=== PATIENT | male | born 1950 | race Caucasian/White ===

== ENCOUNTER 2018-01-04 01:44 | Emergency (ER) | payer OTHER ==
--- NOTE | 2018-01-04 01:50 | EDPHY ---
H & P Time Seen by Provider: 01/04/18 01:50 HPI/ROS: HPI CHIEF COMPLAINT: Shortness of breath HISTORY OF PRESENT ILLNESS: 67-year-old male, history of HIV, undetectable viral load and CD4 count per the patient over 900, presents emergency room with shortness of breath. Patient reports that he lives half the year in [place] and half the year in [place] and often travels back and forth extensively and never has shortness of breath. [place] does [place] [address] here in [place]. He has been here since beginning of December. He has noticed over the past 2-3 weeks he has had worsening shortness of breath. He states he does notice sometimes when he exerts himself additionally notices it mainly when he lays flat and trying to sleep. He states he is able to go to sleep but wakes up feeling short of breath and having to catch his breath. He states his last a few minutes and then he falls back to sleep. It has been happening more frequent it was the worse tonight decided come the emergency room. He denies any pleuritic pain or chest pain, denies a productive cough. He has said some sinus congestion. He denies fever. Denies any abnormal swelling. Denies any chest pain or chest discomfort. Patient reports to me he has never had any cardiac evaluation. No known sleep apnea. He denies any lung disease. Past Medical History: HIV. Past Surgical History: Gallbladder and knee. Social History: Denies daily use drugs alcohol tobacco. Family History: Noncontributory. ROS REVIEW OF SYSTEMS: A comprehensive 10 point review of systems is otherwise negative aside from elements mentioned in the history of present illness. Exam Constitutional appears well nontoxic no acute distress, triage nursing summary reviewed, vital signs reviewed, awake/alert. Vital signs noted at triage. Eyes normal conjunctivae and sclera, EOMI, PERRLA. HENT normal inspection, atraumatic, moist mucus membranes, no epistaxis, neck supple/ no meningismus, no raccoon eyes. Respiratory clear to auscultation bilaterally, normal breath sounds, no respiratory distress, no wheezing. Cardiovascular rate normal, regular rhythm, no murmur, no edema, distal pulses normal. Gastrointestinal soft, non-tender, no rebound, no guarding, normal bowel sounds, no distension, no pulsatile mass. Genitourinary no CVA tenderness. Musculoskeletal no midline vertebral tenderness, full range of motion, no calf swelling, no tenderness of extremities, no meningismus, good pulses, neurovascularly intact. Skin pink, warm, & dry, no rash, skin atraumatic. Neurologic awake, alert and oriented x 3, AAOx3, moves all 4 extremities equally, motor intact, sensory intact, CN II-XII intact, normal cerebellar, normal vision, normal speech. Psychiatric normal mood/affect. Heme/Lymph/Immune no lymphadenopathy. Differential diagnosis includes but is not limited to: ACS, atypical chest pain , pneumothorax, pneumonia, pulmonary embolism, aortic dissection, congestive heart failure, tumor, musculoskeletal pain, esophageal pain, GERD, peptic ulcer disease, pancreatitis Medical Decision Making: Plan for this patient IV establishment full traffic monitor specialist obtain blood work, chest x-ray, D-dimer, EKG, troponin rule out acute coronary syndrome. Rule out PE. Re-evaluation: EKG interpretation by me on record in [facility] system. Impression time of EKG 1:53 a.m., this is sinus rhythm rate of [address] elevation there is no ST depression no significant T-wave abnormalities no signs of cardiac arrhythmia. 0508: CT angiogram of the chest demonstrates no evidence of PE. There is bibasilar atelectasis and some airway disease but no dense pneumonia. Called to me by Dr. Erwin EKG interpretation by me on record in [employer] system. Impression time of EKG 5:44 a.m., sinus rhythm rate of 68 no acute ischemic change appreciated no ST elevation or ST depression no student T-wave abnormalities no signs of cardiac arrhythmia. Unchanged from previous EKG. 0641AM: Patient re-evaluate he was sleeping here in the emergency room in no acute distress. Pulse ox 94% on room air. No labored breathing. I discussed in detail his blood work and CT results with him. Given that there is some airway disease seen on his CT scan are place him on inhaler, prednisone and azithromycin. Additionally do recommend he has close follow up with pulmonology. I discussed possible obstructive sleep apnea with him and possible getting pulmonary function test and a sleep study. He understands this. He will follow up with pulmonology make a follow-up appointment. Meanwhile if he develops chest pain, significant shortness of breath fever worsening symptoms he should return to the emergency room. Albuterol inhaler, azithromycin, prednisone. Return precautions discussed. He understands Source: Patient Constitutional: Initial Vital Signs Temperature (C) 36.8 C 01/04/18 01:49 Heart Rate 83 01/04/18 01:49 Respiratory Rate 18 01/04/18 01:49 Blood Pressure 153/98 H 01/04/18 01:49 O2 Sat (%) 95 01/04/18 01:49 O2 Delivery Mode Room Air O2 (L/minute) 2 Allergies/Adverse Reactions: celecoxib [From Celebrex] Allergy (Verified 01/04/18 01:54) erythromycin base [From E-Mycin] Allergy (Verified 01/04/18 01:54) sulfamethoxazole [From Bactrim] Allergy (Verified 01/04/18 01:54) trimethoprim [From Bactrim] Allergy (Verified 01/04/18 01:54) Home Medications: Medication Instructions Recorded Albuterol [Proventil Inhaler HFA 1 - 2 puffs IH Q4H #1 mdi 01/04/18 (*)] Azithromycin [Zithromax] 250 mg PO DAILY #6 tab 01/04/18 Elviteg/Cob/Emtri/Tenof Alafen 1 each PO 01/04/18 [Genvoya Tablet] predniSONE 60 mg PO DAILY #15 tab 01/04/18 Medical Decision Making - Data Points Laboratory Results: Laboratory Results 01/04/18 02:20 01/04/18 01:56 01/04/18 01/04/18 01/04/18 05:50 02:20 02:10 WBC 5.77 10^3/uL 10^3/uL (3.80-9.50) RBC 4.67 10^6/uL 10^6/uL (4.40-6.38) Hgb 14.6 g/dL g/dL (13.7-17.5) Hct 41.6 % % (40.0-51.0) MCV 89.1 fL fL (81.5-99.8) MCH 31.3 pg pg (27.9-34.1) MCHC 35.1 g/dL g/dL (32.4-36.7) RDW 13.1 % % (11.5-15.2) Plt Count 175 10^3/uL 10^3/uL (150-400) MPV 8.5 fL L fL (8.7-11.7) Neut % (Auto) 51.8 % % (39.3-74.2) Lymph % (Auto) 29.3 % % (15.0-45.0) Greer % (Auto) 13.7 % H % (4.5-13.0) Eos % (Auto) 4.5 % % (0.6-7.6) Baso % (Auto) 0.5 % % (0.3-1.7) Nucleat RBC Rel Count 0.0 % % (0.0-0.2) Absolute Neuts (auto) 2.99 10^3/uL 10^3/uL (1.70-6.50) Absolute Lymphs (auto) 1.69 10^3/uL 10^3/uL (1.00-3.00) Absolute Monos (auto) 0.79 10^3/uL 10^3/uL (0.30-0.80) Absolute Eos (auto) 0.26 10^3/uL 10^3/uL (0.03-0.40) Absolute Basos (auto) 0.03 10^3/uL 10^3/uL (0.02-0.10) Absolute Nucleated RBC 0.00 10^3/uL 10^3/uL (0-0.01) Immature Gran % 0.2 % % (0.0-1.1) Immature Gran # 0.01 10^3/uL 10^3/uL (0.00-0.10) D-Dimer < 0.27 ug/mLFEU ug/mLFEU (0.00-0.50) Sodium Potassium Chloride Carbon Dioxide Anion Gap BUN Creatinine Estimated GFR Glucose Calcium Magnesium Total Bilirubin Conjugated Bilirubin Unconjugated Bilirubin AST ALT Alkaline Phosphatase POC Troponin I 0.01 ng/mL ng/mL (0.00-0.08) NT-Pro-B Natriuret Pep Total Protein Albumin Lipase 01/04/18 01/04/18 01/04/18 02:06 01:56 01:56 WBC TNP RBC TNP Hgb TNP Hct TNP MCV TNP MCH TNP MCHC TNP RDW TNP Plt Count TNP MPV TNP Neut % (Auto) TNP Lymph % (Auto) TNP Greer % (Auto) TNP Eos % (Auto) TNP Baso % (Auto) TNP Nucleat RBC Rel Count TNP Absolute Neuts (auto) TNP Absolute Lymphs (auto) TNP Absolute Monos (auto) TNP Absolute Eos (auto) TNP Absolute Basos (auto) TNP Absolute Nucleated RBC TNP Immature Gran % TNP Immature Gran # TNP D-Dimer Sodium 138 mEq/L mEq/L (135-145) Potassium 4.4 mEq/L mEq/L (3.3-5.0) Chloride 110 mEq/L mEq/L (97-110) Carbon Dioxide 24 mEq/l mEq/l (22-31) Anion Gap 4 mEq/L L mEq/L (8-16) BUN 21 mg/dL mg/dL (7-23) Creatinine 1.2 mg/dL mg/dL (0.7-1.3) Estimated GFR > 60 Glucose 95 mg/dL mg/dL (70-100) Calcium 9.0 mg/dL mg/dL (8.5-10.4) Magnesium 2.0 mg/dL mg/dL (1.6-2.3) Total Bilirubin 0.7 mg/dL mg/dL (0.1-1.4) Conjugated Bilirubin 0.5 mg/dL mg/dL (0.0-0.5) Unconjugated Bilirubin 0.2 mg/dL mg/dL (0.0-1.1) AST 37 IU/L IU/L (17-59) ALT 32 IU/L IU/L (21-72) Alkaline Phosphatase 64 IU/L IU/L (38-126) POC Troponin I 0.01 ng/mL ng/mL (0.00-0.08) NT-Pro-B Natriuret Pep 80 pg/mL pg/mL (0-125) Total Protein 7.3 g/dL g/dL (6.3-8.2) Albumin 4.1 g/dL g/dL (3.5-5.0) Lipase 196 IU/L IU/L (23-300) Medications Given: Discontinued Medications Sodium Chloride (Ns) 1,000 mls @ 0 mls/hr IV EDNOW ONE; Wide Open PRN Reason: Protocol Stop: 01/04/18 02:05 Last Admin: 01/04/18 02:13 Dose: 1,000 mls Point of Care Test Results: Chemistry 01/04/18 01/04/18 05:50 02:06 POC Troponin I 0.01 ng/mL ng/mL 0.01 ng/mL ng/mL (0.00-0.08) (0.00-0.08) Departure - Departure Disposition: Home, Routine, Self-Care Clinical Impression: Dyspnea Qualifiers: Dyspnea type: unspecified Qualified Code(s): R06.00 - Dyspnea, unspecified Condition: Good Instructions: Dyspnea (ED), Shortness of Breath (ED) Additional Instructions: 1. Return to the emergency room if develops worsening shortness of breath, chest pain. 2. Antibiotics and prednisone and inhaler as prescribed. 3. Please make a follow-up appoint with pulmonology. 4. Return if worse. Referrals: NONE *PRIMARY CARE P,. [Primary Care Provider] - As per Instructions Pablo Collier MD [Medical Doctor] - As per Instructions Prescriptions: Albuterol [Proventil Inhaler HFA (*)] 1 - 2 puffs IH Q4H #1 mdi Azithromycin [Zithromax] 250 mg PO DAILY #6 tab predniSONE 60 mg PO DAILY #15 tab
--- NOTE | 2018-01-04 01:56 | CPEKG ---
Heart Rate: 82 RR Interval: 732 P-R Interval: 216 QRSD Interval: 106 QT Interval: 400 QTC Interval: 468 P High[place]: 44 QRS [place]: -12 T Wave [place]: 41 EKG Severity - NORMAL ECG - EKG Impression: SINUS RHYTHM Electronically Signed By: Fredrick Conrad 04-Jan-2018 07:05:23
[2018-01-04] MEDS ORDERED: NS 1,000 ML IV ONE (02:04)
[2018-01-04 02:29] LABS: PLATELET COUNT 175 10^3/uL (150-400)
[2018-01-04] MEDS ORDERED: IOPAMIDOL (ISOVUE 370) 100 ML BTL IV ONE (04:29)
--- NOTE | 2018-01-04 05:47 | CPEKG ---
Heart Rate: 68 RR Interval: 882 P-R Interval: 228 QRSD Interval: 106 QT Interval: 428 QTC Interval: 456 P [place]: 36 QRS [place]: -11 T Wave [place]: 17 EKG Severity - ABNORMAL ECG - EKG Impression: SINUS RHYTHM EKG Impression: FIRST DEGREE AV BLOCK Electronically Signed By: Fredrick Conrad 04-Jan-2018 07:05:23
[2018-01-04 06:51] VITALS: BP 130/81
== END 2018-01-04 06:50 | disposition home or self-care (01) ==
DX: R06.00 Dyspnea, unspecified (principal); B20 Human immunodeficiency virus [HIV] disease; E86.9 Volume depletion, unspecified
CPT/HCPCS: 71045; 71275; 93005; 96360; 99285; Q9967; 84484-PO